=== PATIENT | female | born 1980 | race African-American/Black ===

== ENCOUNTER 2019-05-10 07:48 | Outpatient (CLI) | payer OTHER, MEDICAID ==
--- NOTE | 2019-05-10 08:41 | ULT ---
ULTRASOUND OBSTETRICAL COMPLETE: DATE: 05/10/2019 HISTORY: 39-year-old female in second trimester of . Evaluate anatomy. FINDINGS: number: joy lie: Cephalic Maternal cervix: 3 cm. Closed. Placenta: Posterior. No placenta previa. Amniotic fluid volume: DANNIELLE = 9 cm heart rate: 160 bpm The following anatomy is visualized, with no evidence of anomalies: Head, cerebellum, lateral ventricles, four-chamber heart, stomach, kidneys, cord insertion, bladder, cervical spine, thoracic spine, lumbar spine, sacrum, nose and lips, upper extremities, lower extremities, and three-vessel cord. biometry: Biparietal diameter (BPD): 4.6 cm 20 w 1 d Head circumference (HC): 17.5 cm 20 w 1 d Abdominal circumference (AC): 14.3 cm 19 w 5 d Femur length (FL): 3.0 cm 19 w 2 d Average ultrasound age (AUA): 19 w 6 d Estimated date of delivery (BRENDA): 09/28/2019 Estimated weight (EFW): 298 g +/- 44 g IMPRESSION: 1) Live 2nd trimester intrauterine gestation. 2) Estimated gestational age of 19 weeks, 6 days 3) cephalic lie. 4) no anatomic abnormality identified.
== END 2019-05-10 07:49 | disposition home or self-care (01) ==
LOC: BICULT 07:48
PROVIDERS: ATTEND Family Medicine
DX: Z34.82 Encounter for supervision of other normal pregnancy, second trimester (principal); Z3A.19 19 weeks gestation of pregnancy
CPT/HCPCS: 76805

== ENCOUNTER 2019-08-17 19:32 | Emergency (ER) | payer OTHER, MEDICAID ==
[2019-08-17 20:09] LABS: Bacteria/HPF None Seen HPF (None Seen); Bilirubin Negative (Negative); Blood, Urine Negative (Negative); Clarity Clear (Clear); Glucose, Urine (Dipstick) Normal (Negative); Leukocyte Negative Leu/uL (Negative); Nitrite Negative (Negative); Protein, Urine (Dipstick) 30 mg/dL (Neg-Trace); RBC/HPF 0-3 HPF (0-3); Squamous Epithelial 0-3 HPF (0-3); WBC/HPF 0-3 HPF (0-3)
== END 2019-08-17 20:44 | disposition home or self-care (01) ==
LOC: ERS 19:32
DX: O99.89 Other specified diseases and conditions complicating pregnancy, childbirth and the puerperium (principal); R30.0 Dysuria; Z3A.33 33 weeks gestation of pregnancy
CPT/HCPCS: 51701; 81003; 81015; 87086; A4353

== ENCOUNTER 2019-09-30 07:11 | Inpatient (IN) | payer OTHER ==
[2019-09-30] MEDS: Lactated Ringer's 1,000 ML IV SCH ×3 (07:30→10:24)
[2019-09-30] MEDS ORDERED: Penicillin G Potassium 5 MILL.UNITS VIAL ONE (07:33)
[2019-09-30] MEDS ORDERED: hydrALAZINE 20 MG/ML VIAL SLOW IVP PRN ×2 (07:37→14:32)
[2019-09-30] MEDS ORDERED: Ibuprofen 800 MG TAB PO PRN (07:37)
[2019-09-30] MEDS ORDERED: NS / Oxytocin 40 units/1000ml 1,000 ML IV PRN (07:37)
[2019-09-30] MEDS ORDERED: HYDROcodone/Acetaminophen 5/325 mg Tablet PO PRN ×2 (07:37→14:32)
[2019-09-30] MEDS ORDERED: Ondansetron PF 4 MG/2 ML Vial IVP PRN ×3 (07:37→14:32)
[2019-09-30] MEDS ORDERED: Butorphanol Tartrate 1 MG/ML VIAL SLOW IVP PRN (07:37)
[2019-09-30] MEDS ORDERED: Lidocaine 1% (PF) 30 ML VIAL SC PRN (07:37)
[2019-09-30] MEDS ORDERED: Butorphanol Tartrate 1 MG/ML VIAL ONE (07:43)
[2019-09-30 07:44] VITALS: BMI 40.8
[2019-09-30] MEDS ORDERED: Penicillin G Potassium 5 MILL.UNITS in Sodium Chloride 0.9% 100 ML IVPB SCH (07:45)
[2019-09-30] MEDS ORDERED: Lactated Ringer's 1,000 ML IV SCH (07:45)
[2019-09-30 07:47] LABS: Hemoglobin 13.1 g/dL (12.0-16.0); Mean Corpuscular HGB CONC 34.6 g/dL (32.0-36.0); Mean Corpuscular Hemoglobin 29.9 pg (27.0-31.0); Mean Corpuscular Volume 86.4 fL (78.0-98.0); Mean Platelet Volume 9.2 fL (7.4-10.4); Platelet Count 264 thou/uL (130-400); RBC Distribution Width 13.6 % (11.5-14.5); Red Blood Cell (RBC) Count 4.37 mill/uL (4.20-5.40); White Blood Cell (WBC) Count 14.6 thou/uL (4.8-10.8)
[2019-09-30] MEDS ORDERED: Fentanyl 4 mcg/Bup 0.1% Cadd 100 ML ONE (08:22)
[2019-09-30] MEDS ORDERED: Fentanyl 100 MCG/2 ML VIAL ONE (08:23)
[2019-09-30 08:28] LABS: HBSAg Index 0.19 S/CO (0-0.99); Hep B Surf Ag Non-Reactive S/CO (NonReactive)
[2019-09-30 08:35] LABS: Syphilis Antibody Nonreactive (Nonreactive); Syphilis Antibody Index 0.03 S/CO (<1.00 Non-Reactive)
[2019-09-30] MEDS ORDERED: diphenhydrAMINE 50 MG/ML VIAL IVP PRN (08:43)
[2019-09-30] MEDS ORDERED: Promethazine HCl 25 MG/ML VIAL IM PRN (08:43)
[2019-09-30] MEDS ORDERED: EPHEDRINE 25 MG/5 ML SYRINGE SLOW IVP PRN (08:43)
[2019-09-30] MEDS ORDERED: Acetaminophen 325 MG TAB PO PRN (08:43)
[2019-09-30] MEDS ORDERED: Lactated Ringer's 500 ML IV PRN (08:43)
[2019-09-30] MEDS ORDERED: Naloxone HCl 0.4 mg/ml Vial IVP PRN ×2 (08:43)
[2019-09-30] MEDS ORDERED: Fentanyl 4 mcg/Bupivacaine 0.1% Cassette 100 ML EPIDURAL SCH (08:45)
[2019-09-30] MEDS ORDERED: Communication Order-Pharmacy FS SCH (08:45)
[2019-09-30] MEDS ORDERED: EPHEDRINE 25 MG/5 ML SYRINGE ONE (09:04)
[2019-09-30] MEDS ORDERED: PHENYLEPHRINE-NS 100 MCG/ML 10 ML SYRINGE ONE (09:58)
[2019-09-30] MEDS ORDERED: Penicillin G 2.5 MILL.units 2.5 MILL.UNITS in Premix Bag 1 BAG IVPB SCH (12:00)
[2019-09-30] MEDS ORDERED: NS w/ Oxytocin 10 units 500 ML ONE (12:16)
[2019-09-30] MEDS: NS / Oxytocin 40 units/1000ml 1,000 ML ONE ×2 (13:33→16:19)
[2019-09-30 14:00] LABS: Actual Bicarbonate (HCO3a) 22.3 mEq/L (22-28); Base Excess (BEa) -7.9 mEq/L (-2.0 to +3.0)
[2019-09-30 14:03] LABS: Actual Bicarbonate (HCO3v) 21 mEq/L (22-28); Base Excess -7.5 mEq/L (-2.0 to +3.0)
[2019-09-30] MEDS ORDERED: Lanolin Ointment 7 GM TUBE TOP PRN (14:32)
[2019-09-30] MEDS ORDERED: diphenhydrAMINE 25 MG CAP PO PRN (14:32)
[2019-09-30] MEDS ORDERED: Acetaminophen/Codeine 30-300mg Tablet PO PRN (14:32)
[2019-09-30] MEDS ORDERED: Milk Of Magnesia 30 ML UDCUP PO PRN (14:32)
[2019-09-30] MEDS ORDERED: Benzocaine-Menthol 82.5 ML CAN TOP PRN (14:32)
[2019-09-30] MEDS ORDERED: Bisacodyl 10 MG SUPP PR PRN (14:32)
[2019-09-30] MEDS ORDERED: Preparation H Ointment 28 GM TUBE PR PRN (14:32)
[2019-09-30] MEDS ORDERED: NS / Oxytocin 40 units/1000ml 1,000 ML IV SCH (14:32)
[2019-09-30] MEDS: Ibuprofen 800 MG TAB PO SCH (17:33)
[2019-09-30] MEDS: Ferrous Sulfate 325 MG TAB PO SCH (18:46)
[2019-09-30] MEDS: Docusate Calcium (SURFAK) 240 MG CAP PO SCH (21:39)
[2019-10-01] MEDS: Ibuprofen 800 MG TAB PO SCH ×2 (05:46→14:27)
[2019-10-01] MEDS: Docusate Calcium (SURFAK) 240 MG CAP PO SCH (08:44)
[2019-10-01] MEDS: Ferrous Sulfate 325 MG TAB PO SCH (08:48)
[2019-10-01] MEDS ORDERED: Prenatal Vitamin 1 TAB PO SCH (09:00)
[2019-10-01 11:17] VITALS: BP 137/90; TEMP 98.8
== END 2019-10-01 17:04 | disposition home or self-care (01) | DRG 806 ==
LOC: L&D/OP 07:11 → L&D 07:37 → 3SW 18:04
PROVIDERS: ADMIT Family Medicine; ATTEND Family Medicine
PROC: 10D07Z6 Extraction of Products of Conception, Vacuum, Via Natural or Artificial Opening (ICD-10-PCS; principal; 2019-09-30)
DX: O99.824 Streptococcus B carrier state complicating childbirth (principal); O98.52 Other viral diseases complicating childbirth; Z37.0 Single live birth; B00.9 Herpesviral infection, unspecified; Z3A.39 39 weeks gestation of pregnancy
CPT/HCPCS: 51702; 82805; 85027; 86780; 86850; 86900; 86901; 87340; 99285; J0595; J2405; J2540; J2590; J3010

== ENCOUNTER 2023-04-13 12:30 | Outpatient (CLI) | payer BC | END 2023-04-13 12:31 | disposition home or self-care (01) | LOC: BICMAMMO 12:30 | PROVIDERS: ATTEND Family Medicine | DX: Z12.31 Encounter for screening mammogram for malignant neoplasm of breast (principal); Z80.3 Family history of malignant neoplasm of breast | CPT/HCPCS: 77063; 77067 ==

== ENCOUNTER 2024-03-29 15:03 | Outpatient (CLI) | payer BC | END 2024-03-29 15:04 | disposition home or self-care (01) | LOC: SCSRAD 15:03 | PROVIDERS: ATTEND Nurse Practitioner Family | DX: M79.601 Pain in right arm (principal); M47.812 Spondylosis without myelopathy or radiculopathy, cervical region; M19.011 Primary osteoarthritis, right shoulder | CPT/HCPCS: 72040 ==